=== PATIENT | female | born 1995 | race African-American/Black ===

== ENCOUNTER 2016-12-09 02:25 | Emergency (ER) | payer BC ==
[~2016-12-09] VITALS: Ht 170.2 cm; Wt 66.0 kg
[~2016-12-09 02:25] MED LIST: PROT40TA PO
[2016-12-09 02:28] VITALS: BP 131/95; PULSE 74; RESP 14; TEMP 98.9; O2SAT 98
--- NOTE | 2016-12-09 02:55 | PD ---
HPI Chief Complaint: Pain: Acute or Chronic Time Seen by Provider: 02:48 Travel History International Travel<30 days: No Contact w/Intl Traveler<30days: No Traveled to known affect area: No History of Present Illness HPI 21-year-old female presents for evaluation of soreness. She reports that approximately 5-6 hours ago she was locked out of her apartment. She attempted to open the locked by placing a credit card into the door slid. She banged her body against the door in an attempt to open it and she reports that she cracked the door. She then sat down forcefully on a window. She now has soreness and bruising in her right arm and right leg and back. Symptoms are mild, aggravated by movement. Denies any head trauma. No chest pain, shortness of breath, abdominal pain. She has been ambulatory without difficulty. No other complaints. PFSH Past Medical History ?: Unknown LMP: DUE. Para: 0 Past Surgical History Eye Surgery: Yes (BILATERAL OCCULAR MUSCLE SURGERY) Social History Alcohol Use: No Tobacco Use: No Substance Use: No Allergies-Medications (Allergen,Severity, Reaction): Coded Allergies: Penicillin (Verified Allergy, Severe, UNK, 12/09/16) Reported Meds & Prescriptions Reported Meds & Active Scripts Active No Active Prescriptions or Reported Medications Review of Systems Except as stated in HPI: all other systems reviewed are Neg Physical Exam Narrative GENERAL: Well developed well-nourished female in no acute distress SKIN: Warm and dry. The patient has bruises on her left proximal arm, right elbow, right knee, right ankle. No open wounds. HEAD: Atraumatic. Normocephalic. EYES: Pupils equal and round. No scleral icterus. No injection or drainage. ENT: No nasal bleeding or discharge. Mucous membranes pink and moist. NECK: Trachea midline. No JVD. CARDIOVASCULAR: Regular rate and rhythm. No murmur appreciated. RESPIRATORY: No accessory muscle use. Clear to auscultation. Breath sounds equal bilaterally. GASTROINTESTINAL: Abdomen soft, non-tender, nondistended. Hepatic and splenic margins not palpable. MUSCULOSKELETAL: No obvious deformities. Skin as noted above. The patient has a normal steady gait. She has full spontaneous use of the upper and lower extremities. She has no palpable bony tenderness to palpation. NEUROLOGICAL: Awake and alert. No obvious cranial nerve deficits. Motor grossly within normal limits. Normal speech. Data Data Last Documented VS Vital Signs Date Time Temp Pulse Resp B/P Pulse Ox O2 Delivery O2 Flow Rate FiO2 12/09/16 02:28 98.9 74 14 131/95 98 Room Air Orders Ed Urine Pregnancytest Poc (12/09/16 02:43) MDM Medical Decision Making Medical Screen Exam Complete: Yes Emergency Medical Condition: Yes Medical Record Reviewed: Yes Interpretation(s) Urine test negative Differential Diagnosis Contusion, ecchymosis, hematoma, sprain, strain, fracture Narrative Course 21-year-old female presents with bruises to her extremities after attempting to swing her body at her apartment door in an effort to open it. Examination reveals contusions to the extremities with no evidence of fracture, dislocation , ligamentous sprain. Recommended conservative therapy including ice packs, [id number] Tylenol or Motrin for discomfort. Diagnosis Primary Impression: Multiple contusions Additional Instructions: Apply ice pack to the affected area several times a day 10-15 minutes at a time. Take Tylenol or Motrin for discomfort. Follow-up closely with primary care physician as needed. Return for any emergent medical conditions. Med/Other Pt SpecificInfo: No Change to Meds Scripts No Active Prescriptions or Reported Meds Disposition: 01 DISCHARGE HOME Condition: Stable Smith [place] Dec 09, 2016 02:55
== END 2016-12-09 03:59 | disposition home or self-care (01) ==
LOC: NEPB 02:25
DX: S40.022A Contusion of left upper arm, initial encounter (principal); S50.01XA Contusion of right elbow, initial encounter; S80.01XA Contusion of right knee, initial encounter; S90.01XA Contusion of right ankle, initial encounter; W22.09XA Striking against other stationary object, initial encounter; Y93.89 Activity, other specified; Y92.039 Unspecified place in apartment as the place of occurrence of the external cause
CPT/HCPCS: 84703; 99283

== ENCOUNTER 2017-03-25 22:24 | Emergency (ER) | payer BC ==
[~2017-03-25] VITALS: Ht 170.2 cm; Wt 60.0 kg
[2017-03-25 22:27] VITALS: BP 136/104; PULSE 91; RESP 16; TEMP 99.8; O2SAT 99
--- NOTE | 2017-03-26 00:43 | PD ---
HPI Chief Complaint: Injury Time Seen by Provider: 00:40 Travel History International Travel<30 days: No Contact w/Intl Traveler<30days: No Traveled to known affect area: No History of Present Illness HPI Patient is a 21 year old female who presents to ER with c/o of right sided knee pain. Patient reports that she jumped of a stair on Tuesday and hurt her knee. Reports that the next day, she noticed increased swelling around her knee and reports "i tired to push the fluid down my leg." Patient reports that she has previous history of ligamentous injuries to her right knee, reports "I'm afraid I messed it up again." Patient reports that she has been ambulating with minimal difficulty and pain to her right knee. Patient here for evaluation of right knee pain. PFSH Past Medical History Medical History: Denies Significant Hx Tetanus Vaccination: > 5 Years Influenza Vaccination: No ?: Not LMP: 02/12/17 Para: 0 Past Surgical History Eye Surgery: Yes (BILATERAL OCCULAR MUSCLE SURGERY) Social History Alcohol Use: Yes (RARE) Tobacco Use: No Substance Use: No Allergies-Medications (Allergen,Severity, Reaction): Coded Allergies: Penicillin (Verified Allergy, Severe, UNK, 03/25/17) Reported Meds & Prescriptions Reported Meds & Active Scripts Active No Active Prescriptions or Reported Medications Review of Systems General / Constitutional: No: Fever Eyes: No: Visual changes HENT: No: Headaches Cardiovascular: No: Chest Pain or Discomfort Respiratory: No: Shortness of Breath Gastrointestinal: No: Abdominal Pain Genitourinary: No: Dysuria Musculoskeletal: Positive: Limited ROM (right knee pain), Pain (right knee pain ) Skin: No Rash Neurologic: No: Weakness Psychiatric: No: Depression Endocrine: No: Polydipsia Hematologic/Lymphatic: No: Easy Bruising Physical Exam Narrative GENERAL: No acute distress, nontoxic SKIN: Focused skin assessment warm/dry. HEAD: Atraumatic. Normocephalic. CARDIOVASCULAR: Regular rate and rhythm. No murmur appreciated. RESPIRATORY: No accessory muscle use. Clear to auscultation. Breath sounds equal bilaterally. GASTROINTESTINAL: Abdomen soft, non-tender, nondistended. Hepatic and splenic margins not palpable. MUSCULOSKELETAL: No obvious deformities. No clubbing. No cyanosis. No edema. Patient with minimal pain with ROM to right knee, no obvious fractures, no open fracture, pulses intact, neurovascularly intact NEUROLOGICAL: Awake and alert. No obvious cranial nerve deficits. Motor grossly within normal limits. Normal speech. PSYCHIATRIC: Appropriate mood and affect; insight and judgment normal. Data Data Last Documented VS Vital Signs Date Time Temp Pulse Resp B/P Pulse Ox O2 Delivery O2 Flow Rate FiO2 03/25/17 22:27 99.8 91 16 136/104 99 Room Air Orders Knee, Complete (4vws) (03/26/17 ) [facility] Medical Decision Making Medical Screen Exam Complete: Yes Emergency Medical Condition: Yes Interpretation(s) Vital Signs Date Time Temp Pulse Resp B/P Pulse Ox O2 Delivery O2 Flow Rate FiO2 03/25/17 22:27 99.8 91 16 136/104 99 Room Air Differential Diagnosis Knee sprain, knee fracture, ligamentous injury Narrative Course Patient is a 21-year-old female who presents to emergency room with complaints of right-sided knee pain. Patient reports that she jumped down from a stair on Tuesday, reports that she hurt her right knee and had increased swelling the next day. Patient reports that she is able to ambulate but reports pain to her knee when she does walk. Reports that she has previous injuries to her right knee in the past, patient here for evaluation of knee pain. Patient nontoxic and evaluation, patient with good passive and active range of motion of right knee, there is no obvious swelling. Plan to x-ray knee as patient reports that she feels as if "a bone is moving when i walk." On clinical evaluation, patient with no obvious fracture. Patient understands that ultimately, she will need to follow-up with orthopedic surgery for workup for her knee including but not limited to an MRI to rule out ligamentous injury. Diagnosis Primary Impression: Right knee sprain Qualified Code: S83.91XA - Sprain of right knee, unspecified ligament, initial encounter Referrals: Domenico Baer Jr., MD Patient Instructions: General Instructions Additional Instructions: Please follow the orthopedic surgery as you may need further workup on your knee pain Rest, ice, elevate your right lower extremity Return to the emergency room as needed Please take Tylenol or ibuprofen for pain Med/Other Pt SpecificInfo: Prescription(s) given Scripts Ibuprofen 600 Mg Dgr063 Mg PO Q6H PRN (Pain/Inflammation) #40 TAB Ref 0 Prov:Berna English DO 03/26/17 Berna English DO Mar 26, 2017 00:43
[2017-03-26] MEDS ORDERED: IBUP-232 PO (00:47)
--- NOTE | 2017-03-26 01:42 | RADRPT ---
EXAM DATE/TIME: 03/26/2017 01:28 [facility] COMPARISON: No previous studies available for comparison. INDICATIONS : Fall. Right knee pain. MEDICAL HISTORY : None. SURGICAL HISTORY : None. ENCOUNTER: Initial ACUITY: 2 days PAIN SCORE: 6/10 LOCATION: Right lateral FINDINGS: Four view examination of the right knee demonstrates no evidence of fracture or dislocation. Bony mi neralization is normal. The articular surfaces are intact. The suprapatellar soft tissues have a no rmal configuration. CONCLUSION: Radiographic appearance of the right knee is within normal limits. Grady Rebollar MD on March 26, 2017 at 1:40 Board Certified Radiologist. This report was verified electronically.
== END 2017-03-26 02:49 | disposition home or self-care (01) ==
LOC: NEPD 22:24
DX: S83.91XA Sprain of unspecified site of right knee, initial encounter (principal); X58.XXXA Exposure to other specified factors, initial encounter; Y93.39 Activity, other involving climbing, rappelling and jumping off
CPT/HCPCS: 73564; 99283